=== PATIENT | female | born 1945 | race Hispanic/Latino ===

== ENCOUNTER 2018-04-23 15:50 | Emergency (ER) | payer MEDICARE ==
[~2018-04-23] VITALS: Ht 154.9 cm; Wt 79.4 kg
[2018-04-23 17:24] LABS: BASOPHILS % 0.4 % (0.0-1.0); EOSINOPHILS # (AUTO) 0.1 (0.0-0.4); EOSINOPHILS % 2.1 % (0.0-6.0); HEMATOCRIT 39.6 % (34.2-44.1); HEMOGLOBIN 13.7 g/dL (12.0-16.0); LYMPHOCYTES # (AUTO) 1.8 (1.0-3.2); LYMPHOCYTES % 26.9 % (18.0-39.1); MEAN CORPUSCULAR HEMOGLOBIN 31.4 pg (28-32); MEAN CORPUSCULAR HGB CONC 34.6 g/dL (31-35); MEAN CORPUSCULAR VOLUME 90.6 fL (81-99); MONOCYTES # (AUTO) 0.4 (0.2-0.8); MONOCYTES % 5.7 % (4.4-11.3); NEUTROPHILS # (AUTO) 4.3 (2.1-6.9); NEUTROPHILS % 64.6 % (38.7-80.0); PLATELET COUNT 195 x10e3/uL (140-360); RED BLOOD COUNT 4.37 x10e6/uL (3.6-5.1); RED CELL DISTRIBUTION WIDTH 12.8 % (11.7-14.4)
[2018-04-23 17:26] LABS: CLARITY,URINE SL CLOUDY (CLEAR); COLOR,URINE YELLOW (YELLOW); LEUKOCYTE ESTERASE ,URINE TRACE (NEGATIVE); NITRITE,URINE NEGATIVE (NEGATIVE)
[2018-04-23 17:27] LABS: BILIRUBIN,URINE NEGATIVE (NEGATIVE); KETONES,URINE NEGATIVE (NEGATIVE); PROTEIN,URINE DIPSTICK NEGATIVE (NEGATIVE); URINE UROBILINOGEN 0.2 mg/dL (0.2 - 1)
--- NOTE | 2018-04-23 17:33 | Diagnostic Imaging Report ---
Exam: Head CT without contrast History: Leg weakness Comparison studies: None Technique: Axial images were obtained from the skull base to the vertex. Coronal and sagittal images reconstructed from the axial data. Dose modulation, iterative reconstruction, and/or weight based adjustment of the mA/kV was utilized to reduce the radiation dose to as low as reasonably achievable. Radiation dose: Total DLP: 921 mGy*cm. Estimated effective dose: DLP x 0.015 Intravenous contrast: None Findings: Scalp: No abnormalities. Bones: No fractures, blastic or lytic lesions. Brain sulci: Mildly prominent. Ventricles: Mild compensatory dilatation. No hydrocephalus. Extra-axial spaces: No masses, no fluid collection. Parenchyma: No mass, acute hemorrhage or acute or chronic cortical vascular insults. A few scattered hypodensities in the supratentorial white matter are nonspecific but most compatible with chronic microvascular ischemic changes. Small chronic left thalamic lacunar infarct. Sellar/suprasellar region: No abnormalities. Craniocervical junction: Patent foramen magnum. No Chiari one malformation. Incidental findings: Atherosclerotic calcifications in the carotid siphons. IMPRESSION: No acute intracranial abnormalities. Chronic findings: 1. Mild generalized volume loss. 2. Chronic left thalamic lacunar infarct. 3. Mild microvascular ischemic changes. Signed by: Dr. Anselmo Champagne M.D. on 04/23/2018 5:30 PM
[2018-04-23 17:38] LABS: INR 1.1; PARTIAL THROMBOPLASTIN TIME 27.4 seconds (23.8-35.5); PROTHROMBIN TIME 13.4 seconds (11.9-14.5)
[2018-04-23 17:42] LABS: BACTERIA,URINE MODERATE /HPF; EPITHELIAL CELLS,URINE RARE /LPF; WBC,URINE (MAN) 21-50 /HPF (0-5)
[2018-04-23 17:45] LABS: ALANINE AMINOTRANSFERASE 30 IU/L (0-55); ALBUMIN 4.2 g/dL (3.5-5.0); ALBUMIN/GLOBULIN RATIO 1.2 (0.8-2.0); ALKALINE PHOSPHATASE 75 IU/L (40-150); ANION GAP 19.5 mmol/L (8-16); BLOOD UREA NITROGEN 13 mg/dL (7-26); BUN/CREATININE RATIO 15 (6-25); CALCIUM 10.1 mg/dL (8.4-10.2); CARBON DIOXIDE 21 mmol/L (22-29); CHLORIDE 104 mmol/L (98-107); CREATINE KINASE 39 IU/L (29-168); CREATININE, SERUM 0.88 mg/dL (0.57-1.11); EST GLOMERULAR FILTRATION RATE > 60 ML/MIN (60-); GLUCOSE 219 mg/dL (74-118); POTASSIUM 4.5 mmol/L (3.5-5.1); SODIUM 140 mmol/L (136-145)
[2018-04-23 19:43] VITALS: BP 139/67
== END 2018-04-23 20:03 | disposition home or self-care (01) ==
LOC: ER 15:50
DX: R53.1 Weakness (principal); M54.32 Sciatica, left side; M79.662 Pain in left lower leg
CPT/HCPCS: 36415; 70450; 80053; 81001; 82550; 82553; 84484; 85025; 85610; 85730; 93971; 99282

== ENCOUNTER 2018-04-24 23:09 | Inpatient (IN) | payer MEDICARE ==
[~2018-04-24] VITALS: Ht 154.9 cm; Wt 77.7 kg
--- NOTE | 2018-04-24 23:50 | Diagnostic Imaging Report ---
EXAMINATION: Head CT without contrast. HISTORY:Worsening left-sided weakness. COMPARISON:CT brain from 04/23/2018. TECHNIQUE: Multidetector axial images were obtained from the foramen magnum to the vertex without contrast. The images were reconstructed using brain and bone algorithms. Thin section brain images were reformatted into coronal and sagittal planes. Dose modulation, iterative reconstruction, and/or weight based adjustment of the mA/kV was utilized to reduce the radiation dose to as low as reasonably achievable. Intravenous contrast: None IMAGE QUALITY: Acceptable. FINDINGS: Skull/scalp: No lytic or blastic. lesions. No surgical changes. Parenchyma: Nonspecific bilateral frontoparietal patchy white matter hypodensity are likely related to small vessel ischemic changes. Chronic lacunar infarct in left thalamus. No acute hemorrhage, mass or acute major vascular territorial infarct. Arteries: No density suggestive of thrombosis. Dural sinuses: No abnormal density suggestive of thrombosis. Ventricles: Mild compensated dilatation due to volume loss. No hydrocephalus. Extra-axial spaces: No abnormal density. Brain volume: Normal for age. Craniocervical junction: No mass, Chiari malformation, or basilar invagination. Sella: No mass. Paranasal/mastoid sinuses: Imaged portions unremarkable. IMPRESSION: No acute intracranial abnormality. No change since CT brain from 04/23/2018. Chronic findings: 1. Mild supratentorial white matter microvascular ischemic changes. 2. Chronic lacunar infarct in left thalamus. 3. Mild generalized cerebral volume loss. Signed by: Dr. Zeina Dhillon M.D. on 04/24/2018 11:47 PM
[2018-04-25] VITALS (7 sets, daily range): BP systolic 173–195; BP diastolic 81–92
--- NOTE | 2018-04-25 00:21 | Diagnostic Imaging Report ---
CHEST SINGLE (PORTABLE), 04/24/2018 11:10 PM Technique: CHEST SINGLE (PORTABLE) Comparison: None available. Clinical history: \S\worsening left side weakness \[id number] \S\[id number] \S\Y Findings: Unremarkable portable appearance of the heart, mediastinum, lungs and pleural spaces. Impression: 1. Lines/Tubes: None 2. No acute abnormality. Signed by: Dr Cat Martinez MD on 04/25/2018 12:17 AM
[2018-04-25 00:35] LABS: BASOPHILS % 0.3 % (0.0-1.0); EOSINOPHILS # (AUTO) 0.1 (0.0-0.4); EOSINOPHILS % 1.6 % (0.0-6.0); HEMATOCRIT 38.6 % (34.2-44.1); HEMOGLOBIN 13.2 g/dL (12.0-16.0); MEAN CORPUSCULAR HEMOGLOBIN 30.6 pg (28-32); MEAN CORPUSCULAR HGB CONC 34.2 g/dL (31-35); MEAN CORPUSCULAR VOLUME 89.6 fL (81-99); MONOCYTES # (AUTO) 0.4 (0.2-0.8); MONOCYTES % 5.8 % (4.4-11.3); PLATELET COUNT 193 x10e3/uL (140-360); RED BLOOD COUNT 4.31 x10e6/uL (3.6-5.1); RED CELL DISTRIBUTION WIDTH 12.6 % (11.7-14.4)
[2018-04-25 00:45] LABS: INR 1.14; PROTHROMBIN TIME 13.7 seconds (11.9-14.5)
[2018-04-25 00:46] LABS: PARTIAL THROMBOPLASTIN TIME 30.3 seconds (23.8-35.5)
[2018-04-25] MEDS ORDERED: ASPIRIN 81 MG CHEW TAB PO STA (00:48)
[2018-04-25] MEDS ORDERED: ASPIRIN 81 MG CHEW TAB ONE (00:51)
[2018-04-25 00:54] LABS: CLARITY,URINE CLOUDY (CLEAR); COLOR,URINE YELLOW (YELLOW); LEUKOCYTE ESTERASE ,URINE 1+ (NEGATIVE); NITRITE,URINE NEGATIVE (NEGATIVE); PROTEIN,URINE DIPSTICK NEGATIVE (NEGATIVE)
[2018-04-25 00:55] LABS: ALANINE AMINOTRANSFERASE 25 IU/L (0-55); ALBUMIN 4.2 g/dL (3.5-5.0); ALBUMIN/GLOBULIN RATIO 1.2 (0.8-2.0); ALKALINE PHOSPHATASE 77 IU/L (40-150); ANION GAP 17.3 mmol/L (8-16); BACTERIA,URINE MODERATE /HPF; BILIRUBIN,URINE NEGATIVE (NEGATIVE); BLOOD UREA NITROGEN 12 mg/dL (7-26); BUN/CREATININE RATIO 14 (6-25); CARBON DIOXIDE 22 mmol/L (22-29); CHLORIDE 103 mmol/L (98-107); CREATINE KINASE 60 IU/L (29-168); CREATININE, SERUM 0.85 mg/dL (0.57-1.11); EPITHELIAL CELLS,URINE FEW /LPF; EST GLOMERULAR FILTRATION RATE > 60 ML/MIN (60-); GLUCOSE 247 mg/dL (74-118); KETONES,URINE NEGATIVE (NEGATIVE); POTASSIUM 4.3 mmol/L (3.5-5.1); SODIUM 138 mmol/L (136-145); TRANSITIONAL EPI CELLS,URINE FEW; URINE UROBILINOGEN 0.2 mg/dL (0.2 - 1); WBC,URINE (MAN) >50 /HPF (0-5)
[2018-04-25] MEDS ORDERED: SODIUM CHLORIDE FLUSH 10 ML SYR INJ PRN (01:15)
[2018-04-25] MEDS ORDERED: DEXTROSE 50% SYRINGE 50 ML IV PRN ×2 (01:15→11:15)
[2018-04-25] MEDS: CEFTRIAXONE SOD 1 GM VIAL IV SCH (01:53)
[2018-04-25] MEDS ORDERED: PRILOSEC OTC20 MG PO (02:28)
[2018-04-25] MEDS ORDERED: PRAVASTATIN SOD20 MG PO (02:28)
[2018-04-25] MEDS ORDERED: MULTIPLE VITAM1 EAC1 PO (02:28)
[2018-04-25] MEDS ORDERED: METFORMIN HCL500 MG PO (02:28)
[2018-04-25] MEDS ORDERED: METOPROLOL SUCC50 MG PO (02:28)
[2018-04-25] MEDS ORDERED: HUMULIN R100 UNIT/2 (02:28)
[2018-04-25] MEDS: INSULIN REGULAR, HUMAN 100 UNIT/1 ML 3ML VIAL SQ SCH ×4 (07:40→21:20)
[2018-04-25] MEDS: ASPIRIN 81 MG CHEW TAB PO SCH (10:26)
[2018-04-25 10:34] LABS: CREATINE KINASE MB 1.1 ng/mL (0-5.0)
--- NOTE | 2018-04-25 10:49 | Diagnostic Imaging Report ---
MRI of the brain and MRAs of the head and neck without contrast History: 73-year-old female with left-sided weakness Comparison studies: Head CT from April 24, 2018 Technique: Brain: Pre-contrast: Sagittal T2; axial T2, T1-IR, MPGR, DWI, axial and coronal T2 flair 3-D [id number] intracranial MRA. 2D time of flight for cervical MRA. Intravenous contrast: None Findings: Brain: Scalp: No abnormal signal. No masses. Bone marrow: Normal in signal intensity. Brain sulci: Mildly enlarged . Ventricles: Mild compensatory ventricular dilatation . No hydrocephalus. Parenchyma: Acute nonhemorrhagic stroke in the right paracentral sonya at the level of the superior cerebellar peduncle with increased signal on DWI and increased FLAIR signal. ADC signal is partially obscured due to artifact, but appears mildly hypointense. No mass or hemorrhage. A few T2 FLAIR hyperintense foci in the supratentorial white matter and confluent FLAIR signal around the ventricles are nonspecific small vessel ischemic changes. Suprasellar region: No abnormalities. Craniocervical junction: No abnormalities. The foramen magnum is patent. No Chiari malformations. Intracranial MRA: Internal carotid arteries: The internal carotid arteries and bilateral A1/M1 segments are patent. No contour irregularity. 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 The left P1 segment has an irregular contour with loss of signal at the confluence of the P1 segment and posterior communicating artery. The remainder of the left posterior cerebral artery is supplied by the posterior communicating artery. The right posterior cerebral artery is normal. Vertebrobasilar circulation: The basilar artery has an irregular contour throughout its entire length with multifocal areas of mild to moderate stenosis. Anatomical variants: Acom: Small aneurysm as described above. Pcom: Patent on the left, congenitally absent or hypoplastic on the right Vertebral arteries:Both are patent. Neck MRA: If present, stenosis of the carotid bulbs is measured based on NASCET criteria i.e area of maximum stenosis compared to the cervical ICA distal to the bulb. Right Carotid Artery: The common carotid, internal and external carotid arteries at the level of the neck are normal in caliber, and patent, no evidence of stenoses. Left Carotid Artery: The common carotid, internal and external carotid arteries at the level of the neck are normal in caliber, and patent, no evidence of stenoses. Vertebral Arteries: Both are normal in morphology and caliber. Both are codominant. No significant stenosis is seen. IMPRESSION: Brain MRI: 1. Acute nonhemorrhagic stroke in the right hemipons which correlates with patient's symptoms. 2. Mild chronic microvascular ischemic changes. 3. Mild volume loss. Intracranial and Neck MRAs: 1. Irregular contour of the basilar artery is likely secondary to atherosclerotic plaque and is also likely the etiology of the patient's pontine stroke. 2. Questionable small fusiform aneurysm of the anterior communicating artery can be further evaluated with dedicated CTA of the head. 3. No hemodynamically significant stenoses of the carotid arteries/carotid bulb. 4. Persistent circulation supplying the left posterior cerebral artery. Dr. Perdomo spoke with Dr. Clement, Emergency Room Physician, regarding the above findings at 10:04 AM on 04/25/2018. Preliminary report dictated by Dr. Flora Perdomo, Neuroradiology Fellow. A final report by the attending radiologist will follow. The preliminary report was reviewed and a final report issued by Dr. Caceres neuroradiologist on 04/25/2018 at 4:24 PM Signed by: Dr. Michaela Caceres M.D. on 04/25/2018 4:24 PM
[2018-04-25] MEDS ORDERED: ACETAMINOPHEN 325 MG TAB PO PRN (11:00)
[2018-04-25] MEDS ORDERED: HYDRALAZINE HCL 20 MG/ML VIAL IV PRN ×2 (11:15)
[2018-04-25] MEDS ORDERED: HUMULIN 70100 UNIT/1 SQ (12:17)
[2018-04-25] MEDS ORDERED: ASPIRIN EC81 MG PO (12:21)
[2018-04-25] MEDS ORDERED: VITAMIN D1000 UNI1 PO (12:23)
[2018-04-25] MEDS ORDERED: VITAMIN E400 UNI1 PO (12:23)
--- NOTE | 2018-04-25 14:38 | History and Physical ---
CHIEF COMPLAINT: Left-sided weakness and slurred speech. HISTORY OF PRESENT ILLNESS: This is a 73-year-old female with known history of type-2 diabetes uncontrolled, hypertension, morbidly obese, who comes into the ED with complaint of left-sided weakness that has been ongoing since Friday of this week. Patient reports that she noticed she was cooking at home, and she started having some acute onset of weakness in the left upper and lower extremities. She began to drag her leg and had difficulty standing up. Denies any dizziness or any blurry vision. Also denies any chest pain or palpitations. Throughout the week, she progressively got worse and noticed yesterday to have slurred speech and a facial droop, and she was brought in to the hospital by her family. Imaging studies here showed acute CVA. Patient was seen and evaluated at bedside on the medical floor in the ER, currently doing well with no other complaints. REVIEW OF SYSTEMS: Pertinent positives: Left upper and lower extremity weakness, slurred speech, facial droop. Pertinent negatives: Denies any chest pain, palpitations, nausea, vomiting, diarrhea, dysuria, hematuria, frequency, urgency, lightheadedness, dizziness, abdominal pain, headache, shortness of breath, cough, congestion, fever or any other complaints. The rest of the 14-point review of systems have been reviewed with the patient and are negative. ALLERGIES: SULFA, CODEINE, NIACIN. HOME MEDICATIONS: She takes: 1. Humulin R, unsure of the dose. 2. Metformin 1,000 mg b.i.d. 3. Metoprolol ER 50 mg daily. 4. Pravastatin 20 mg daily. 5. Multivitamin. 6. Prilosec. PAST MEDICAL HISTORY: Diabetes uncontrolled, hypertension, morbidly obese, hyperlipidemia. SURGICAL HISTORY: Reports none. FAMILY HISTORY: Hypertension, diabetes. SOCIAL HISTORY: Denies drugs, alcohol or any smoking history. Good social support. She is . She lives in the [place], coming to visit some family. VITAL SIGNS: Temperature is 98.2, pulse 75, respiratory rate 21, blood pressure 152/61. Pulse ox is 94%, and she is on room air. LAB FINDINGS: White count is 7.5, hemoglobin 13, hematocrit 39, platelets 193. Chemistry: Sodium 138, potassium 4.3, chloride 103, bicarb 22, anion gap of 17, BUN is 12, creatinine 0.85, glucose of 247, calcium 10. Total bilirubin 0.4, AST 23, ALT 25, alk phos 77, CK 60. Troponin was 0.021 and then 0.019, which are negative. Albumin is 4.2. Urinalysis concerning for underlying UTI. MICROBIOLOGY: None. IMAGING STUDIES: Chest x-ray shows no acute abnormalities. CT brain showed no acute intracranial abnormality but showed evidence of a chronic lacunar infarct in the left thalamus. MRI of the brain shows acute nonhemorrhagic stroke in the right hemipons, which correlates with the patient's symptoms. Scattered supratentorial microvascular ischemic changes. MRA of the neck shows irregular contour of the basilar artery is likely secondary to atherosclerotic plaque, likely the etiology of the patient's pontine stroke. 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 It can be further evaluated with a dedicated CT of the head. PHYSICAL EXAMINATION GENERAL: Not in acute distress, alert and oriented times 3, cooperative on examination. HEENT: Head is normocephalic and atraumatic. Eyes: Pupils are equal, round and reactive to light bilaterally. The extraocular movements are intact bilaterally. NECK: Supple with good range of motion. THROAT: No evidence of any erythema or exudates in the posterior pharynx, has poor dentition. PULMONARY: Clear to auscultation bilaterally. No wheezing, no rales, no rhonchi, no crackles appreciated. CARDIOVASCULAR: Positive S1, S2. No murmurs, rubs or gallops appreciated. ABDOMEN: Soft, nondistended, nontender to palpation. Bowel sounds present. MUSCULOSKELETAL: Strength on the left upper and lower extremities is 3/5. On the right side, it is 5/5 upper and lower extremities. NEUROLOGIC: She has weakness in the left upper and lower extremities, some residual facial droop with difficulty smiling. SKIN: Intact, warm to touch, good cap refill. PSYCHIATRIC: Normal affect and mood. EXTREMITIES: No edema. Good range of motion throughout. ASSESSMENT AND PLAN 1. Acute cerebrovascular accident: Confirm via MRI of the brain. Put on aspirin, statin, PT and OT. MRA of the head and neck has been performed with results above. Unsure if the patient needs carotid ultrasound since they have had an MRA, but will defer to neurology. Will get a 2-D echo with a bubble study to be read. 2. Type-2 diabetes. Patient will be on insulin sliding scale, Actos, A1c. 3. Hypertension: Stable. Continue same home medications and p.r.n. hydralazine. 4. Urinary tract infection: Urine cultures were sent to the lab. Continue with IV Rocephin. 5. Prophylaxis: Put on SCDs for now. 6. Fluid, electrolytes, nutrients: No IV fluids needed at this time. Put on a regular diet. She already passed her swallow eval. 7. Physical therapy/occupational therapy evaluate and treat. 8. Disposition: Inpatient. Neurology consulted. Will likely need [facility] facility for further rehabilitation. Job#: [id number]
[2018-04-25 16:38] LABS: CREATINE KINASE MB 1.1 ng/mL (0-5.0)
[2018-04-25] MEDS: ONDANSETRON HCL INJ 2 MG/ML VIAL IV PRN (16:50)
[2018-04-25] MEDS: HYDRALAZINE HCL 25 MG TAB PO PRN (17:13)
[2018-04-25] MEDS: ATORVASTATIN 20 MG TAB PO SCH (21:20)
[2018-04-26] VITALS (8 sets, daily range): BP systolic 141–186; BP diastolic 70–82
[2018-04-26] MEDS: HYDRALAZINE HCL 25 MG TAB PO PRN ×2 (00:54→05:27)
[2018-04-26] MEDS: CEFTRIAXONE SOD 1 GM VIAL IV SCH (01:21)
[2018-04-26] MEDS: MELATONIN 5 MG TABLET PO PRN ×2 (01:22→20:27)
[2018-04-26 05:51] LABS: BASOPHILS % 0.2 % (0.0-1.0); EOSINOPHILS # (AUTO) 0.2 (0.0-0.4); EOSINOPHILS % 2.3 % (0.0-6.0); HEMATOCRIT 35.4 % (34.2-44.1); HEMOGLOBIN 12.3 g/dL (12.0-16.0); LYMPHOCYTES # (AUTO) 2.1 (1.0-3.2); LYMPHOCYTES % 30.9 % (18.0-39.1); MEAN CORPUSCULAR HEMOGLOBIN 31.2 pg (28-32); MEAN CORPUSCULAR HGB CONC 34.7 g/dL (31-35); MEAN CORPUSCULAR VOLUME 89.8 fL (81-99); MONOCYTES # (AUTO) 0.5 (0.2-0.8); MONOCYTES % 7.1 % (4.4-11.3); NEUTROPHILS # (AUTO) 3.9 (2.1-6.9); PLATELET COUNT 160 x10e3/uL (140-360); RED BLOOD COUNT 3.94 x10e6/uL (3.6-5.1); RED CELL DISTRIBUTION WIDTH 12.6 % (11.7-14.4)
[2018-04-26 06:24] LABS: ALANINE AMINOTRANSFERASE 18 IU/L (0-55); ALBUMIN 3.7 g/dL (3.5-5.0); ALBUMIN/GLOBULIN RATIO 1.3 (0.8-2.0); ALKALINE PHOSPHATASE 63 IU/L (40-150); ANION GAP 12.9 mmol/L (8-16); BLOOD UREA NITROGEN 8 mg/dL (7-26); BUN/CREATININE RATIO 10 (6-25); CALCIUM 9.4 mg/dL (8.4-10.2); CARBON DIOXIDE 26 mmol/L (22-29); CHLORIDE 100 mmol/L (98-107); CREATININE, SERUM 0.77 mg/dL (0.57-1.11); EST GLOMERULAR FILTRATION RATE > 60 ML/MIN (60-); GLUCOSE 271 mg/dL (74-118); POTASSIUM 3.9 mmol/L (3.5-5.1); SODIUM 135 mmol/L (136-145)
[2018-04-26 06:39] LABS: CHOL/HDL RATIO 4.7 (3.0-3.6)
[2018-04-26] MEDS: INSULIN REGULAR, HUMAN 100 UNIT/1 ML 3ML VIAL SQ SCH ×2 (07:40→11:30)
[2018-04-26] MEDS: ASPIRIN 81 MG CHEW TAB PO SCH (08:04)
[2018-04-26] MEDS ORDERED: METOPROLOL SUCCINATE 50 MG TAB XL PO SCH (09:00)
[2018-04-26] MEDS ORDERED: METOPROLOL SUCCINATE 50 MG TAB XL PO NR (09:45)
[2018-04-26] MEDS: FAMOTIDINE 20 MG TAB PO SCH ×2 (10:30→16:30)
[2018-04-26] MEDS: DOCUSATE SODIUM 100 MG CAP PO SCH (10:30)
[2018-04-26] MEDS ORDERED: DEXTROSE 50% SYRINGE 50 ML IV PRN (12:30)
[2018-04-26] MEDS: LISINOPRIL 2.5 MG TAB PO SCH (12:40)
--- NOTE | 2018-04-26 13:37 | Progress Note ---
DATE: April 26, 2018 SUBJECTIVE: The patient still has weakness on the left upper and lower extremities. Her speech is relatively normal. I discussed the case with neurology, and medications were adjusted accordingly. Patient is interested in inpatient rehab, which I placed an order for case management to arrange. OBJECTIVE VITAL SIGNS: Temperature is 96.3, pulse 87, respiratory rate 14, blood pressure 158/70. Pulse ox is 97%, and she is on room air. LAB FINDINGS: White count is 6.6, hemoglobin 12.3, hematocrit 35, platelets 160. Her PT is 13.7, INR 1.1, PTT 30. Chemistry: Sodium 135, potassium 3.9, chloride 100, bicarb 26, anion gap of 12, BUN 8, creatinine 0.7, glucose 271. A1c is 7. Calcium is 9.4. Total bilirubin 0.5, AST 21, ALT 18. LDL was 90, HDL 33, triglycerides 163. MICROBIOLOGY: Urine cultures are pending. IMAGING STUDIES: None today. PHYSICAL EXAMINATION GENERAL: Not in acute distress, alert and oriented times 3, cooperative on examination. HEENT: Head is normocephalic and atraumatic. Eyes: Pupils are equal and reactive to light bilaterally. The extraocular movements are intact bilaterally. NECK: Supple with good range of motion. THROAT: No evidence of any erythema or exudates in the posterior pharynx, has poor dentition. PULMONARY: Clear to auscultation bilaterally. No wheezing, no rales, no rhonchi, no crackles appreciated. NEUROLOGIC: Cranial nerves II through XII grossly intact. Left upper and lower extremities 3/5 strength. SKIN: Intact, warm to touch, good cap refill. PSYCHIATRIC: Normal affect and mood. EXTREMITIES: No edema. Good range of motion throughout. MUSCULOSKELETAL: Left upper and lower extremities 3/5 strength. ASSESSMENT AND PLAN 1. Acute cerebrovascular accident: Confirmed on MRI of the brain. Neurology was consulted and adjusted medications accordingly and also added Plavix. She will continue to work with PT and OT. MRA of the head and neck have been noted. Pending 2-D echo results. Continue with statin, aspirin, Plavix. Patient will benefit more from inpatient rehab due to significant amount of weakness in the left side of her body. 2. Type-2 diabetes: Her A1c is 7. Will increase her sliding scale. 3. Hypertension: Currently elevated. Metoprolol has been increased by double based on neurology. Will continue with p.r.n. hydralazine for now. She benefits more from an DEE inhibitor due to her underlying renal failure, which I will start on low dose of 5 mg. 4. Urinary tract infection: Urine cultures seem to be mixed farrah, but continue with IV Rocephin for now. 5. Prophylaxis: Put on Lovenox. 6. Fluid, electrolytes, nutrients: No IV fluids. Heart healthy diet. 7. Physical therapy/occupational therapy/speech therapy: Have been consulted to evaluate and treat. 8. Disposition: Inpatient. Neurology consulted. Will likely need nursing home facility versus inpatient rehab. Job#: [id number]
[2018-04-26] MEDS ORDERED: ENOXAPARIN SOD INJ 40 MG/0.4 ML SYR SC SCH (17:00)
[2018-04-26] MEDS: ATORVASTATIN 20 MG TAB PO SCH (20:28)
--- NOTE | 2018-04-26 23:00 | Consultation ---
DATE OF CONSULTATION: April 26, 2018 NEUROLOGY CONSULT NOTE HISTORY OF PRESENT ILLNESS: Ms. Giron is a 73-year-old right-hand dominant woman with past medical history significant for hypertension, hyperlipidemia, and diabetes mellitus type 2, admitted to [facility] on April 2018 with a stroke. Approximately, 1 week prior to admission, the patient began to experience fatigue and generalized weakness. As time passed, her left leg seemed to be "giving out" and her speech was "slowed". Ms. Giron presented to the emergency center at [facility] on April 23, 2018 with the above symptoms. Multiple diagnostic studies were performed. Ms. Giron was eventually discharged from the emergency center because "everything was okay". Over the next 24+ hours, the patient's symptoms significantly worsened, especially after the patient experienced a slip and fall. After this fall, the patient reports she "ran out of energy, strength, and everything". More specifically, Ms. Giron experienced worsening weakness of her left arm and left leg, prompting her to return to the emergency center at [facility] on the evening of April 24, 2018. Ms. Giron does not report a visual field cut or other disturbance, numbness, dizziness or confusion. She does report slurring and slowing of her speech, a left facial droop, and left hemiparesis as detailed above. Upon her arrival in the emergency center, the patient was afebrile with a blood pressure 178/74 mmHg and pulse of 76 beats per minute. Her neurological examination was significant for left hemiparesis with the arm and leg equally affected. Ms. Giron was given an NIH Stroke Scale score of 6. A CT of the brain without contrast was performed while the patient was in the emergency center. There was no evidence of acute large territorial ischemia or hemorrhage. Ms. Giron was admitted to [facility] under observation status for further evaluation and treatment of her symptoms. Ms. Giron does report experiencing similar symptoms approximately 3 years ago. She did not seek medical attention for those symptoms. REVIEW OF SYSTEMS: Nausea, vomiting, constipation, dysarthria, facial weakness, weakness of the left arm and leg, impairment of balance and gait. Otherwise, a 12-point review of systems is negative. PAST MEDICAL HISTORY: Hypertension, hyperlipidemia, diabetes mellitus type 2, multiple UTIs. PAST SURGICAL HISTORY: Partial hysterectomy, bladder suspension times 3. PAST HOSPITALIZATIONS: Surgeries/procedures as listed, childbirth times 5. FAMILY MEDICAL HISTORY: The patient's paternal and maternal grandparents are . Their medical histories are unknown. The patient's father is from gunshot wound. His medical history is unknown. The patient's mother is from a GI bleed. Ms. Giron has 2 brothers who are alive. One brother has diabetes mellitus and the other brother has hypertension and heart disease. The patient has 2 sisters, who are alive. One has a prior history of diabetes mellitus while the 2nd has a history of genitourinary cancer. One brother is from lung cancer. Ms. Giron has 4 sons and 1 daughter, all of whom are alive and has diabetes mellitus. SOCIAL HISTORY: The patient is . She is retired. There is no reported current or prior tobacco, alcohol, or recreational drug use. HOME MEDICATIONS 1. Aspirin 81 mg by mouth daily. 2. Vitamin D3 1200 units by mouth daily. 3. Humulin 70-30 thirty units subcutaneously twice daily. 4. Metformin 1000 mg by mouth twice daily. 5. Metoprolol succinate ER 50 mg by mouth at bedtime daily. 6. Multivitamin with minerals 1 tablet by mouth daily. 7. Prilosec 20 mg by mouth twice daily. 8. Pravastatin 20 mg by mouth at bedtime daily. 9. Vitamin E 1200 mg by mouth daily. ALLERGIES: CODEINE, SULFA, NIACIN. NO KNOWN FOOD ALLERGIES. NO KNOWN ALLERGIES TO LATEX. NO KNOWN ALLERGIES TO IODINE OR OTHER CONTRAST MATERIALS. PHYSICAL EXAMINATION VITAL SIGNS: Height 61 inches. Weight hundred 171 pounds. BMI 32.4 kg per meter squared. Blood pressure 186/82 mmHg. Pulse 85 beats per minute. Respiratory rate 14 breaths per minute. Oxygen saturation 97% on room air. GENERAL: The patient is awake and alert, does not appear distressed. Obese. HEENT: Normocephalic, atraumatic. Pupils are equal, round, and reactive to light. Moist mucous membranes. NECK: Supple. No appreciable thyromegaly. No appreciable carotid bruits. CARDIOVASCULAR: S1, S2, regular rate and rhythm. No murmurs, rubs or gallops. RESPIRATORY: Clear to auscultation bilaterally. No wheezes, rhonchi or rales. EXTREMITIES: The skin is warm and dry. No clubbing, cyanosis or edema. The posterior tibial and dorsalis pedis pulses are 1+ and symmetric. SKIN: No rashes or lesions. NEUROLOGIC Memory/Attention: The patient is awake and alert, oriented to person, place, time, and situation. Cranial Nerves: Cranial nerve I--not tested. Cranial nerve II, III, IV, and --pupils are equal and round react briskly to light (from 4 mm to 2 mm). Extraocular movements intact. No nystagmus. Cranial nerve V--sensation to light touch and pinprick is intact in the bilateral V1 through V3 distributions. Strength of the temporalis and masseter muscles is within normal limits. Cranial nerve VII--there is flattening of the left nasolabial fold with mild left central facial weakness. Cranial nerve VIII--hearing is diminished to finger rub on the right, intact on the left. Cranial nerve IX, X--the soft palate elevates equally and symmetrically. Cranial nerve XI--normal strength of the bilateral sternocleidomastoid and trapezius muscles. Cranial nerve XII--the tongue protrudes midline and moves symmetrically from side to side. Strength: Bulk is normal. Strength is 5/5 in the right deltoid, biceps, triceps, wrist flexors and extensors, finger flexors and extensors, intrinsic hand muscles, hip flexors, knee flexors and extensors, ankle dorsiflexion and plantar flexion, and intrinsic foot muscles. Strength is 3+/5 in the left deltoid, 3+/5 in the right and the left biceps, 3/5 in the left triceps, 3+ 5 in left wrist flexors, 3/5 in the left wrist extensors, 3+/5 in the left finger flexors, 3/5 in the left finger extensors, 3/5 in the left intrinsic hand muscles, 4+/5 in the left hip flexors, 4+/5 in the left knee flexors, 5/5 in the left knee extensors, 4+/5 and in the left ankle dorsiflexors, 5/5 in the left ankle plantar flexors, and 4+/5 in the left intrinsic foot muscles. Tone is increased in the left arm. DTRs: Deep tendon reflexes are 2+ and symmetric at the triceps, biceps, brachioradialis, and patellas. Deep tendon reflexes are absent and symmetric at the Achilles. Plantar responses are flexor bilaterally. Sensation: Sensation is intact to light touch and pinprick in both arms and both legs except as follows: Diminished sensation to pinprick over the left leg. Cerebellar: [id number] and heel-hurtado movements are intact without dysmetria or other impairment except as follows: Cerebellar function is impaired in the left arm, but within the bounds of paresis. Gait: Deferred. Speech: Spontaneous speech is mildly dysarthric without aphasia. Repetition is intact. Involuntary Movements: None. Pronator Drift: Left arm. LABORATORY DATA: The patient's complete metabolic panel is significant for an elevated serum glucose of 271. The hemoglobin A1c is 7.0. The total cholesterol is 156, triglycerides 163, LDL cholesterol 90, HDL cholesterol 33. The CBC with differential and platelets is within normal limits. The PT, INR, and PTT are within normal limits. A urinalysis was significant for 2+ glucose, trace blood, 1+ leukocyte esterase, 6 to 10 red blood cells, greater than 50 white blood cells, few transitional epithelial cells, and moderate bacteria. A urine culture reveals 50 to 100,000 CFU per mL mixed farrah, a contamination. DIAGNOSTIC STUDIES 1. Chest x-ray April 24, 2018: No acute, abnormality. 2. CT of the brain without contrast April 24, 2018: On my review, there is no evidence of recent large territorial ischemia, hemorrhage, mass or mass effect. There is a chronic lacunar stroke in the left thalamus. There is diffuse cerebral atrophy, appropriate for age. There are findings compatible with [id number] chronic small vessel ischemic disease. 3. Electrocardiogram: Normal sinus rhythm at 75 beats per minute. 4. MRI of the brain without contrast April 25, 2018: On my review, there is an acute ischemic stroke in the right nadine sonya. There is diffuse cerebral atrophy, appropriate for age. There are scattered T2/FLAIR hyperintense foci in the supra and infratentorial white matter compatible with [id number] chronic small-vessel ischemic disease. 5. MRA of the brain and neck without contrast April 25, 2018: There is an irregular contour of the basilar artery, which is probably secondary to atherosclerotic plaque. There is a questionable small fusiform aneurysm of the anterior communicating artery. Otherwise, no hemodynamically significant stenosis of the intra- or extracranial vasculature is observed. 6. Echocardiogram April 25, 2018: Ejection fraction 65% to 70%. Concentric left ventricular hypertrophy. Calcified aortic valve. ASSESSMENT AND PLAN: Ms. Giron is a 73-year-old right-hand dominant woman with past medical history significant for hypertension, hyperlipidemia, and diabetes mellitus type 2, admitted to [facility] on April 25, 2018 with a right nadine pontine ischemic stroke and resulting left-sided deficits. The patient has undergone a thorough neurological examination with findings detailed above. Her laboratory data and other diagnostic studies have been reviewed and are documented above. RECOMMENDATIONS 1. Discontinue aspirin. Ms. Giron will be prescribed Plavix 75 mg by mouth daily for stroke prophylaxis. 2. The patient's goal blood pressure is less than 130/70 mmHg. The dose of metoprolol will be increased to 100 mg by mouth daily. Continue to monitor vital signs per unit protocol and adjust antihypertensive medications accordingly. 3. The patient's goal total cholesterol is less than 200 with a LDL of less than 70. I agree with the change of the patient's cholesterol lowering medication to atorvastatin 40 mg by mouth at bedtime daily. 4. The patient's goal hemoglobin A1c is less than 7.0. Ms. Giron' hemoglobin A1c is 7.0. Continue with current medications. Tight glycemic control is recommended while the patient is in the hospital. 5. Continue with speech and physical therapies. 6. GI prophylaxis with Pepcid 20 mg by mouth twice daily with meals. DVT prophylaxis with Lovenox 40 mg subcutaneously daily. 7. Defer treatment of the remaining medical comorbidities to the primary and other services following the patient. Thank you for this consultation. I will continue to follow this patient while she remains in the hospital. TIME SPENT: 70 minutes. Job#: [id number] BILLY SPARROW
[2018-04-27 00:13] VITALS: BP 113/62
[2018-04-27] MEDS: CEFTRIAXONE SOD 1 GM VIAL IV SCH (01:10)
[2018-04-27 05:16] VITALS: BP 117/70
[2018-04-27] MEDS: FAMOTIDINE 20 MG TAB PO SCH ×2 (07:55→16:50)
[2018-04-27] MEDS: CLOPIDOGREL BISULFATE 75 MG TAB PO SCH (08:10)
[2018-04-27] MEDS: LISINOPRIL 2.5 MG TAB PO SCH (08:10)
[2018-04-27] MEDS: SITAGLIPTIN 100 MG TAB PO SCH (08:10)
[2018-04-27] MEDS: DOCUSATE SODIUM 100 MG CAP PO SCH (08:10)
[2018-04-27] MEDS: METOPROLOL SUCCINATE 50 MG TAB XL PO SCH (08:10)
--- NOTE | 2018-04-27 09:16 | Progress Note ---
DATE: April 27, 2018 SUBJECTIVE: The patient is doing well with no other complaints. She still has weakness on the left upper and lower extremity. She is tolerating diet well. She has no other issues at this time. I discussed this with case management. She is working on inpatient rehab facility for her. We are going to remove the Zimmerman and also remove the WILLARD hoses and put her on Lovenox. OBJECTIVE VITAL SIGNS: Temperature is 97.7, pulse 62, respiratory rate 20, blood pressure 117/70, pulse ox 98% on room air. GENERAL: Not in acute distress. Alert and oriented times 3. Cooperative on examination. HEENT: Head is normocephalic and atraumatic. Eyes: Pupils equal, round and reactive to light bilaterally. Extraocular movements intact bilaterally. NECK: Supple. Good range of motion. Throat with no evidence of any erythema or exudates in the posterior pharynx. Has poor dentition. PULMONARY: Clear to auscultation bilaterally. No wheezing. No rales. No rhonchi. No crackles appreciated. CARDIOVASCULAR: Positive S1 and S2. No murmurs, rubs or gallops appreciated. ABDOMEN: Soft, nondistended and nontender to palpation. Bowel sounds present. MUSCULOSKELETAL: Strength is 3/5 in the left upper and lower extremities. No evidence of any muscle deficit on examination. No weakness appreciated. NEUROLOGICAL: Cranial nerves II-XII are grossly intact. No evidence of any neurological deficits on exam. She has upper and lower extremity weakness, 3/5. SKIN: Intact. Warm to touch. Good cap refill. PSYCHIATRIC: Normal affect and mood. EXTREMITIES: No edema. Good range of motion throughout. LAB FINDINGS: None. MICROBIOLOGY: None. IMAGING STUDIES: None. ASSESSMENT AND PLAN 1. Acute cerebrovascular accident confirmed on MRI: Neurology is following. No aspirin, just Plavix. Continue working with physical therapy and occupational therapy. 2-D echo results were reviewed with an ejection fraction of 65% to 70%. Otherwise, no other findings at this time. We are going to with the statin. I discussed this with case management. She is going to be working on inpatient rehab facility for her. 2. Type 2 diabetes: A1c is 7. Continue with sliding scale and monitor closely. 3. Hypertension: Blood pressure is much improved. We are going to continue with the same regimen at this time. 4. Urinary tract infection: Urine culture did not grow anything. It seems to be a mixed farrah. Will go ahead and just discontinue the Rocephin at this time and monitor without antibiotics. 5. Prophylaxis: Lovenox. Remove thromboembolic-deterrent hoses. 6. Fluids, electrolytes, nutrients: No intravenous fluids. Heart-healthy diet. 7. Physical therapy/occupational therapy/speech therapy: Continue working with the therapist. 8. Disposition: Inpatient. Neurology is consulted. I discussed with case management. Working on inpatient rehab facility. Once she gets insurance approval, she will be cleared to be discharged. She is otherwise medically stable for discharge. Job#: [id number] TERRY
[2018-04-27 09:44] VITALS: BP 156/97
[2018-04-27] MEDS: ONDANSETRON HCL INJ 2 MG/ML VIAL IV PRN (11:40)
[2018-04-27] MEDS: INSULIN REGULAR, HUMAN 100 UNIT/1 ML 3ML VIAL SQ SCH ×3 (11:45→21:30)
[2018-04-27 12:00] VITALS: BP 152/64
[2018-04-27] MEDS: ENOXAPARIN SOD INJ 40 MG/0.4 ML SYR SC SCH (16:50)
[2018-04-27 17:31] VITALS: BP 136/60
[2018-04-27 17:36] VITALS: BP 136/60
--- NOTE | 2018-04-27 19:35 | Diagnostic Imaging Report ---
History: Left weakness, rule out CVA Comparison studies: Head CT's on 820 11/16 and 04/24/2018 Brain MRI on 04/25/2018 Technique: Sagittal T2; axial DWI, FLAIR, MPGR, T1, Coronal FLAIR. Intravenous contrast: None Findings: Scalp: Normal in signal . No masses . Bone marrow: Normal in signal intensity. Extra-axial: No masses or fluid collections. Brain sulci: Moderately prominent. Ventricles: Moderate compensatory dilatation. No hydrocephalus. Parenchyma: An acute 1.2 cm nonhemorrhagic lacunar insult (hyperintense on T2 and T2 FLAIR and associated with restricted diffusion, in the right anterior sonya correlates with the provided history of left weakness. No additional acute vascular insults. No masses, hemorrhage, acute or chronic cortical ischemic insults. A few T2 FLAIR hyperintense foci in the supratentorial white matter and additional confluent foci along the margins of the lateral ventricle are nonspecific small vessel ischemic changes. Suprasellar region: No abnormalities. Craniocervical junction: No abnormalities. Patent foramen magnum. No Chiari one malformation. Vessels: Normal flow-voids in the arteries and sinuses. IMPRESSION: 1. No new acute abnormalities. 2. The previously described acute nonhemorrhagic lacunar insult in the right anterior sonya is larger and more prominent on the T2 FLAIR and diffusion weighted sequences than on the MRI dated 04/25/2018. The insult has compromised the penetrating branches of the basilar artery. 3. Otherwise, no changes when compared to the previous MRI. Chronic findings: 1. Moderate generalized volume loss 2. Mild supratentorial white matter small vessel ischemic changes Signed by: Dr. Bairon Moise M.D. on 04/27/2018 6:26 PM
[2018-04-27] MEDS: ATORVASTATIN 40 MG TAB PO SCH (20:59)
[2018-04-27] MEDS: MELATONIN 5 MG TABLET PO PRN (20:59)
[2018-04-28] VITALS: BP 141/65
[2018-04-28 04:59] LABS: BASOPHILS % 0.2 % (0.0-1.0); EOSINOPHILS # (AUTO) 0.2 (0.0-0.4); EOSINOPHILS % 3.2 % (0.0-6.0); HEMATOCRIT 34.4 % (34.2-44.1); LYMPHOCYTES # (AUTO) 1.6 (1.0-3.2); LYMPHOCYTES % 27.9 % (18.0-39.1); MEAN CORPUSCULAR HEMOGLOBIN 31.2 pg (28-32); MEAN CORPUSCULAR HGB CONC 34.9 g/dL (31-35); MEAN CORPUSCULAR VOLUME 89.4 fL (81-99); MONOCYTES # (AUTO) 0.5 (0.2-0.8); MONOCYTES % 9.1 % (4.4-11.3); NEUTROPHILS # (AUTO) 3.3 (2.1-6.9); NEUTROPHILS % 59.1 % (38.7-80.0); PLATELET COUNT 157 x10e3/uL (140-360); RED BLOOD COUNT 3.85 x10e6/uL (3.6-5.1); RED CELL DISTRIBUTION WIDTH 12.4 % (11.7-14.4)
[2018-04-28 05:36] LABS: BLOOD UREA NITROGEN 10 mg/dL (7-26); BUN/CREATININE RATIO 13 (6-25); CALCIUM 9.4 mg/dL (8.4-10.2); CARBON DIOXIDE 25 mmol/L (22-29); CHLORIDE 103 mmol/L (98-107); CREATININE, SERUM 0.79 mg/dL (0.57-1.11); EST GLOMERULAR FILTRATION RATE > 60 ML/MIN (60-); GLUCOSE 283 mg/dL (74-118); SODIUM 137 mmol/L (136-145)
[2018-04-28] MEDS: HYDRALAZINE HCL 25 MG TAB PO PRN (06:22)
[2018-04-28] MEDS: INSULIN REGULAR, HUMAN 100 UNIT/1 ML 3ML VIAL SQ SCH ×4 (07:50→20:50)
[2018-04-28] MEDS: FAMOTIDINE 20 MG TAB PO SCH ×2 (07:50→16:46)
[2018-04-28 08:00] VITALS: BP 163/60
[2018-04-28] MEDS: DOCUSATE SODIUM 100 MG CAP PO SCH (08:14)
[2018-04-28] MEDS: SITAGLIPTIN 100 MG TAB PO SCH (08:14)
[2018-04-28] MEDS: CLOPIDOGREL BISULFATE 75 MG TAB PO SCH (08:14)
[2018-04-28] MEDS: METOPROLOL SUCCINATE 50 MG TAB XL PO SCH (08:14)
[2018-04-28] MEDS: LISINOPRIL 10 MG TAB PO SCH (08:14)
[2018-04-28] MEDS ORDERED: LISINOPRIL 2.5 MG TAB PO SCH (09:00)
--- NOTE | 2018-04-28 09:50 | Progress Note ---
DATE: April 28, 2018 SUBJECTIVE: The patient is doing well. She is in the bed with no complaints. She is working with physical therapy and occupational therapy. She is tolerating diet well. Now awaiting inpatient rehab acceptance by the insurance company. OBJECTIVE VITAL SIGNS: Temperature is 99.3, pulse 62, respiratory rate 18, blood pressure 178/79, pulse ox 98% on room air. LAB FINDINGS: White count is 5.6, hemoglobin 12, hematocrit 34, platelets 157. Chemistries: Sodium 137, potassium 4, chloride 103, bicarb 25, anion gap 13, BUN 10, creatinine 0.79, calcium 9.4. MICROBIOLOGY: None. IMAGING STUDIES: Repeat MRI that was performed on 04/27/2018 shows no acute abnormalities. The previously described acute nonhemorrhagic lacunar insult in the right anterior sonya is larger and more prominent on T2 FLAIR and diffusion. PHYSICAL EXAMINATION GENERAL: Not in acute distress. Alert and oriented times 3. Cooperative on examination. HEENT: Head is normocephalic and atraumatic. Eyes: Pupils are equal and reactive to light bilaterally. Extraocular movements intact bilaterally. NECK: Supple. Good range of motion. THROAT: No evidence of any erythema or exudates in the posterior pharynx. Has poor dentition. PULMONARY: Clear to auscultation bilaterally. No wheezing. No rales. No rhonchi. No crackles appreciated. CARDIOVASCULAR: Positive S1 and S2. No murmurs, rubs or gallops appreciated. ABDOMEN: Soft, nondistended and nontender to palpation. Bowel sounds present. MUSCULOSKELETAL: Strength on the left upper and lower extremities is 3/5, right upper and lower extremities 5/5 strength. NEUROLOGICAL: Again, left-sided strength is 3/5. SKIN: Intact. Warm to touch. Good cap refill. PSYCHIATRIC: Normal affect and mood. EXTREMITIES: No edema. Good range of motion throughout. ASSESSMENT AND PLAN 1. Acute cerebrovascular accident, confirmed on MRI of the brain: Neurology is following. According to neurology, no aspirin needed, just Plavix and statin. Continue PT and OT. Waiting for inpatient rehab acceptance. Discussed with case management. 2. Type-2 diabetes: A1c is 7. Continue with sliding scale. 3. Hypertension: Blood pressure was slightly elevated this morning, but we started a new regimen on yesterday. Will continue to monitor closely. 4. Urinary tract infection: This is likely a contaminant. 5. Prophylaxis: Lovenox. 6. Fluids, electrolytes, nutrients: No IV fluids. Heart-healthy diet. 7. Physical therapy/occupational therapy/speech therapy: Continue working with the therapist. 8. Disposition: Inpatient neurology is following. Now waiting for inpatient rehab acceptance by the insurance company. Otherwise, she is medically stable for discharge. Job#: [id number]
[2018-04-28 10:40] VITALS: BP 163/60
[2018-04-28] MEDS: ONDANSETRON HCL INJ 2 MG/ML VIAL IV PRN (11:54)
[2018-04-28 12:00] VITALS: BP_SYST 130; BP_SYST 163; BP_DIAS 55; BP_DIAS 60
[2018-04-28 16:00] VITALS: BP 120/56
[2018-04-28] MEDS: ENOXAPARIN SOD INJ 40 MG/0.4 ML SYR SC SCH (16:46)
[2018-04-28] MEDS: ATORVASTATIN 40 MG TAB PO SCH (20:45)
[2018-04-28] MEDS: MELATONIN 5 MG TABLET PO PRN (20:45)
[2018-04-28 22:00] VITALS: BP 126/71
[2018-04-29] VITALS (7 sets, daily range): BP systolic 142–165; BP diastolic 65–76
[2018-04-29] MEDS: FAMOTIDINE 20 MG TAB PO SCH ×2 (07:30→16:44)
[2018-04-29] MEDS: INSULIN REGULAR, HUMAN 100 UNIT/1 ML 3ML VIAL SQ SCH ×3 (07:30→16:30)
[2018-04-29] MEDS: SITAGLIPTIN 100 MG TAB PO SCH (09:00)
[2018-04-29] MEDS ORDERED: LISINOPRIL 10 MG TAB PO SCH (09:00)
[2018-04-29] MEDS: LISINOPRIL 10 MG TAB PO SCH (09:07)
[2018-04-29] MEDS: DOCUSATE SODIUM 100 MG CAP PO SCH (09:07)
[2018-04-29] MEDS: CLOPIDOGREL BISULFATE 75 MG TAB PO SCH (09:07)
[2018-04-29] MEDS: METOPROLOL SUCCINATE 50 MG TAB XL PO SCH (09:08)
[2018-04-29] MEDS ORDERED: CITRATE OF MAGNESIA 300ML BOTTLE PO ONE (10:45)
--- NOTE | 2018-04-29 14:30 | Discharge Summary ---
FINAL DISCHARGE DIAGNOSES 1. Acute cerebrovascular accident, confirmed on magnetic resonance imaging of the brain with left-sided weakness. 2. Type 2 diabetes. 3. Hypertension. 4. Urinary tract infection, contaminate. 5. Medically debilitated. CONSULTANTS: Neurology. VITAL SIGNS: Temperature is 97.7, pulse 84, respiratory rate is 18, blood pressure 148/70, pulse ox 96% on room air. LAB FINDINGS: Show white count 5.6, hemoglobin 12, hematocrit is 34, platelets of 157. Coagulation: PT 13, INR 1.1, PTT 30. Chemistry: Sodium 137, potassium 4, chloride 103, bicarb 25, anion gap of 13, BUN 10, creatinine 0.79, point of care glucose is 252, calcium is 9.4, total bilirubin is 0.5, AST was 21, ALT was 18. Troponins were negative. LDL was 90. Urinalysis was found to be a contaminate. No evidence of UTI. IMAGING STUDIES: Chest x-ray on admission was found to be negative. CT brain showed no evidence of acute intracranial abnormality. MRI of the brain showed acute nonhemorrhagic stroke in the right nadine-sonya which correlates with the patient's symptoms. MRA of the head and neck showed some irregularity of the basilar artery secondary to atherosclerotic plaque, but no hemodynamically significant stenosis according to the report. No further workup needed by neurology. Repeat MRI showed no new acute abnormalities. Previously described acute non hemorrhagic lacunar insult in the right anterior sonya is larger and more prominent on T2 Flair and diffusion-weighted sequences. HOSPITAL COURSE: This is a 73-year-old female morbidly obese with uncontrolled type 2 diabetes and hypertension, comes into the ED with complaints of left-sided upper and lower extremity weakness and slurred speech. Patient was admitted for further evaluation. Neurology was consulted. CT brain was found to be negative. MRI of the brain was consistent with an acute CVA with a nonhemorrhagic acute lacunar insult in the right anterior sonya. MRA of the head and neck with results above. While here, patient was on aspirin and statin and worked with PT and OT as well as speech therapy. Patient has still some residual left-sided weakness requiring inpatient rehab. Patient will be discharged to inpatient rehab for further management and care. While here, her blood pressure and diabetes were well managed and controlled. She had an underlying initially thought of a UTI but found to be a contaminate and antibiotics were discontinued. On discharge, patient was doing well with no other complaints, back to normal baseline. On the day of discharge, vital signs stable, labs reviewed and stable. Patient was seen and evaluated and examined thoroughly on the day of discharge with no other complaints. Patient verbalized understanding and agrees with plan of care. Follow up accordingly as an outpatient, with the neurologist as an outpatient in 1 week, and PCP in 1 week. DISCHARGE MEDICATIONS: See med reconciliation form. DISPOSITION: To inpatient rehab. CONDITION: Stable. DIET: Heart healthy. FOLLOWUP: With neurologist and PCP in 1 to 2 weeks. In the evening of worsening symptoms, patient advised to come back to the ED for further evaluation. Discharge summary took greater than 35 minutes. JERARDO DURAN MD Job#: [id number] KAYE
[2018-04-29] MEDS: ENOXAPARIN SOD INJ 40 MG/0.4 ML SYR SC SCH (17:31)
== END 2018-04-29 18:24 | DRG 65 ==
LOC: ER 23:09 → ERHOLD 04-25 01:07 → IMCU 04-25 11:55 → OBSVTOIN 04-26 08:53 → INTOOBSV 04-26 08:53 → OBSVTOIN 04-26 08:54 → MED/SURG2 04-26 14:28
PROVIDERS: ADMIT Internal Medicine; ATTEND Internal Medicine
DX: I63.311 Cerebral infarction due to thrombosis of right middle cerebral artery (principal); G81.94 Hemiplegia, unspecified affecting left nondominant side; E11.9 Type 2 diabetes mellitus without complications; Z79.4 Long term (current) use of insulin; I10 Essential (primary) hypertension; E78.5 Hyperlipidemia, unspecified; E11.65 Type 2 diabetes mellitus with hyperglycemia
CPT/HCPCS: 36415; 51700; 70450; 70544; 70547; 70551; 71045; 80048; 80053; 80061; 81001; 82550; 82553; 82948; 83036; 84484; 85025; 85610; 85730; 87086; 93005; 93306; 96372; 97139; 99284; G0378; J0696; J1650; J2405